=== PATIENT | female | born 1985 | race Caucasian/White ===

== ENCOUNTER 2017-01-04 18:20 | Emergency (ER) | payer MEDICAID ==
[2017-01-04 23:22] VITALS: BP 115/70
== END 2017-01-04 23:22 | disposition home or self-care (01) ==
LOC: ED 18:20
DX: F11.23 Opioid dependence with withdrawal (principal); R10.9 Unspecified abdominal pain; R11.2 Nausea with vomiting, unspecified; F32.1 Major depressive disorder, single episode, moderate; Z87.898 Personal history of other specified conditions
CPT/HCPCS: J2405; J3490; J7030